=== PATIENT | female | born 1985 | race Caucasian/White ===

== ENCOUNTER 2022-11-05 13:29 | Emergency (ER) | payer MEDICAID ==
[~2022-11-05] VITALS: Ht 167.6 cm; Wt 59.1 kg
[2022-11-05 13:48] VITALS: BP 124/72; PULSE 73; TEMP 97.4; O2SAT 100
[2022-11-05] MEDS ORDERED: ketorolac tromethamine 15mg/ml inj. IM ONE (15:10)
[2022-11-05] MEDS ORDERED: diazepam inj 5 MG/ML inj. IM ONE (15:10)
[2022-11-05] MEDS ORDERED: NAPR-56 PO (15:20)
[2022-11-05] MEDS ORDERED: CYCL-1 PO (15:20)
[2022-11-05] MEDS ORDERED: PRED20TA PO (15:20)
[2022-11-05 15:21] VITALS: RESP 18
== END 2022-11-05 15:43 | disposition home or self-care (01) ==
LOC: ER 13:30
DX: S46.911A Strain of unspecified muscle, fascia and tendon at shoulder and upper arm level, right arm, initial encounter (principal); M54.2 Cervicalgia; X58.XXXA Exposure to other specified factors, initial encounter; Y93.89 Activity, other specified; Y92.89 Other specified places as the place of occurrence of the external cause; Y99.8 Other external cause status
CPT/HCPCS: 96372; 99284; J1885; J3360

== ENCOUNTER 2023-12-27 16:15 | Emergency (ER) | payer MEDICAID ==
[~2023-12-27] VITALS: Ht 167.6 cm; Wt 53.7 kg
[~2023-12-27 16:15] MED LIST: CYCL-1 PO
[2023-12-27 16:17] VITALS: BP 121/77; PULSE 90; TEMP 97.7; O2SAT 100
[2023-12-27] MEDS ORDERED: AMOX500C2 PO (16:45)
[2023-12-27 16:52] VITALS: RESP 16
== END 2023-12-27 16:52 | disposition home or self-care (01) ==
LOC: ER 16:16
DX: K04.7 Periapical abscess without sinus (principal); Z79.2 Long term (current) use of antibiotics; Z79.899 Other long term (current) drug therapy
CPT/HCPCS: 99283